=== PATIENT | female | born 1935 | race Caucasian/White ===

== ENCOUNTER → 2016-06-20 | Outpatient (CLI) | payer MEDICARE, OTHER ==
[~2016-06-20] MED LIST: ALPH300C PO; AMIT25TA PO; ASCO500T8 PO; BUTCHERS BROOM PO; CALC-46 PO; CHRO200T9 PO; DHEA PO; DIPH25CA61 PO; DMAE PO; FOLI0.8T2 PO; GLUCOSAMINE PO; HAWT565C PO; HYAL1CAP PO; HYDR-3138 PO; LEVO137T3 PO; LEVO88TA4 PO; LISI1TAB5 PO; MAGNESIUM COMPLEX PO; METF850T2 PO; MICROLACTIN PO; MONT5TAB9 PO; MULT-464 PO; NIAC500T9 PO; POTA20TA6 PO; SELE100T PO; SIMV10TA3 PO; VITA400C14 PO; [UNRECOGNIZED DRUG - CODE] PO
== END | disposition home or self-care (01) ==
LOC: CFH 09:34
PROVIDERS: ATTEND Nurse Practitioner
DX: Z13.820 Encounter for screening for osteoporosis (principal); Z78.0 Asymptomatic menopausal state
CPT/HCPCS: 77080

== ENCOUNTER 2016-11-22 13:27 | Emergency (ER) | payer MEDICARE, OTHER ==
[~2016-11-22] VITALS: Ht 170.2 cm; Wt 85.5 kg
[~2016-11-22 13:27] MED LIST changes: -HYDR-3138 PO; +HYDR-3237 PO
[2016-11-22] MEDS ORDERED: SODIUM CHLORIDE 0.9% 1,000ML IVBOLUS ONE (14:30)
[2016-11-22] MEDS ORDERED: SODIUM CHLORIDE FLUSH 10ML SYR IVF ONE (14:30)
[2016-11-22 14:41] LABS: HEMATOCRIT 38.8 % (34.6-47.8); WHITE BLOOD COUNT 5.9 x10^3/uL (3.4-10)
[2016-11-22 14:45] LABS: BLOOD UREA NITROGEN 16 mg/dL (7-18)
[2016-11-22 16:10] VITALS: BP 151/41
== END 2016-11-22 16:11 | disposition home or self-care (01) ==
LOC: ED 14:58
DX: S86.111A Strain of other muscle(s) and tendon(s) of posterior muscle group at lower leg level, right leg, initial encounter (principal); I10 Essential (primary) hypertension; E11.9 Type 2 diabetes mellitus without complications; E78.5 Hyperlipidemia, unspecified; I73.9 Peripheral vascular disease, unspecified; X50.1XXA Overexertion from prolonged static or awkward postures, initial encounter; Y93.89 Activity, other specified; Y99.8 Other external cause status; Y92.89 Other specified places as the place of occurrence of the external cause
CPT/HCPCS: 36415; 80048; 82040; 85025; 85610; 85730; 93971; 96360; 99285; J7030

== ENCOUNTER 2018-05-23 01:55 | Inpatient (IN) | payer MEDICARE, OTHER ==
[~2018-05-23] VITALS: Ht 170.2 cm; Wt 91.7 kg
[~2018-05-23 01:55] MED LIST changes: +METF850T10 PO; -METF850T2 PO
[2018-05-23] MEDS ORDERED: SODIUM CHLORIDE FLUSH 10ML SYR IVF ONE (02:30)
[2018-05-23] MEDS ORDERED: SODIUM CHLORIDE 0.9% 1,000ML IVBOLUS ONE ×3 (02:30)
[2018-05-23 02:37] LABS: MEAN CORPUSCULAR HEMOGLOBIN 29.5 pg (27.0-34.8); MEAN CORPUSCULAR HGB CONC 33.7 g/dL (32.4-35.8); MEAN CORPUSCULAR VOLUME 87.4 fL (80-100); MEAN PLATELET VOLUME 6.8 fL (7.4-10.4); PLATELET COUNT 256 x10^3/uL (130-400); RED BLOOD COUNT 2.57 x10^6/uL (3.82-5.3); RED CELL DISTRIBUTION WIDTH 16.3 % (9.6-15.2)
[2018-05-23 02:42] LABS: INTERNATIONAL NORMALIZED RATIO 1.31 (0.93-1.1); PROTHROMBIN TIME 13.6 Seconds (9.6-11.5)
[2018-05-23 02:44] LABS: ALANINE AMINOTRANSFERASE 20 U/L (12-78); ANION GAP 6 mmol/L (5-15); CALCIUM 7.8 mg/dL (8.5-10.1); CHLORIDE 110 mmol/L (98-107); CREATININE 1.12 mg/dL (0.55-1.02)
[2018-05-23 02:46] LABS: ANISOCYTOSIS 1+; BASOPHILS # (AUTO) 0.03 x10^3/uL (0-0.1); BASOPHILS % (AUTO) 0 % (0-1); EOSINOPHILS # (AUTO) 0.27 x10^3/uL (0-0.4); EOSINOPHILS % (AUTO) 3 % (1-7); LYMPHOCYTES # (AUTO) 1.15 x10^3/uL (1-3.4); LYMPHOCYTES % (AUTO) 14 % (22-44); MD MORPH REVIEW ONLY; MONOCYTES # (AUTO) 0.97 x10^3/uL (0.2-0.8); MONOCYTES % (AUTO) 12 % (2-9); NEUTROPHILS # (AUTO) 5.93 x10^3/uL (1.8-6.8); NEUTROPHILS % (AUTO) 71 % (42-75)
[2018-05-23 02:47] LABS: OVALOCYTES 1+; POLYCHROMASIA 1+
[2018-05-23 02:48] LABS: ALKALINE PHOSPHATASE 59 U/L (45-117); BILIRUBIN,TOTAL 0.4 mg/dL (0.2-1.0); ECHINOCYTES 1+; TOTAL PROTEIN 5.1 g/dL (6.4-8.2); TROPONIN I < 0.015 ng/mL (0.000-0.045)
[2018-05-23 02:49] LABS: MICROCYTOSIS 1+
[2018-05-23 02:50] LABS: <PLATELET ESTIMATE> ADEQUATE; <PLT MORPHOLOGY> NORMAL PLT MORPH
--- NOTE | 2018-05-23 02:56 | NUR ---
PT BACK FROM CT SCAN AND H&H FOUND TO BE LOW. TRANSFUSE 2 UNITS WAS ORDERED. PT VERY UNCOMFORTABLE AND HAVING INCREASING PAIN IN UPPER RIGHT ABD.
[2018-05-23] MEDS ORDERED: VANCOMYCIN PER PHARMACY MC PRN (03:00)
[2018-05-23] MEDS ORDERED: CEFEPIME 1 GM in DEXTROSE 5% 50 ML IV ONE (03:00)
--- NOTE | 2018-05-23 03:05 | NUR ---
BLOOD STARTED ORDERED AND AWAITING TEST RESULTS.BC X 2 ALSO TO LAB.
[2018-05-23] MEDS ORDERED: PHARMACOKINETIC CONSULTATION MC ONE (03:30)
[2018-05-23] MEDS ORDERED: VANCOMYCIN 1,500 MG in SODIUM CHLORIDE 0.9% 250 ML IV ONE (03:30)
[2018-05-23] MEDS ORDERED: NOREPINEPHRINE 4 MG in SODIUM CHLORIDE 0.9% 246 ML IV PRN (03:30)
--- NOTE | 2018-05-23 03:44 | NUR ---
SECOND UNIT OF BLOOD STARTED.
--- NOTE | 2018-05-23 03:50 | NUR ---
second unit of uncrossed blood running. levo drip started and pt improved.
[2018-05-23] MEDS ORDERED: FENTANYL PF 100 MCG/2ML ONE ×3 (04:10→07:03)
[2018-05-23] MEDS ORDERED: FENTANYL PF 100 MCG/2ML IV ONE (04:30)
[2018-05-23] MEDS ORDERED: LIDOCAINE-MPF 1%, 5ML ONE ×2 (04:35)
--- NOTE | 2018-05-23 04:38 | NUR ---
CALLED HER TWO SONS SUSANA AND LEFT A VOICE MAIL CALLED [facility] TO COME SEE THE PT
[2018-05-23 04:40] VITALS: BP 85/43
[2018-05-23] MEDS ORDERED: MIDAZOLAM 1 MG/ML, 5ML ONE (04:52)
--- NOTE | 2018-05-23 04:52 | NUR ---
PT TO IR AND AWAITING CCU BED. PT VSS AT 5MEQ OF LEVO AND BP AT 115/62. PT A/O X 4. SAB[facility]ON CATH PLACED AND URINE SENT TO LAB.
[2018-05-23 05:00] LABS: MICROSCOPIC NOT IND
[2018-05-23] MEDS ORDERED: ONDANSETRON 2MG/ML, 2ML IVPush PRN (05:00)
[2018-05-23] MEDS ORDERED: OMNIPAQUE 350 MG/ML, 100ML BOTTLE ONE (05:00)
[2018-05-23] MEDS ORDERED: ACETAMINOPHEN 325 MG TABLET PO PRN (05:00)
[2018-05-23 05:03] LABS: CULTURE INDICATED? NO
--- NOTE | 2018-05-23 05:08 | NUR ---
REPORT CALLED TO FLOOR PT WILL GO TO 558 WHEN READY.
[2018-05-23] MEDS ORDERED: VISIPAQUE 320 MG/ML, 150ML BOTTLE ONE (07:10)
[2018-05-23] MEDS ORDERED: DIPHENHYDRAMINE 50 MG/ML, 1ML ONE (07:13)
[2018-05-23] MEDS: morphine SULFATE 10 MG/ML, 1ML IVPush PRN ×2 (08:24→13:39)
[2018-05-23] MEDS: SODIUM CHLORIDE 0.9% 1,000 ML IV SCH ×3 (08:25→21:36)
[2018-05-23] MEDS ORDERED: CEFEPIME 1 GM in DEXTROSE 5% 50 ML IV SCH (11:00)
[2018-05-23] MEDS: MONTELUKAST 5 MG TAB.CHEW PO SCH (12:27)
[2018-05-23] MEDS: MULTIVITAMIN 1 TABLET PO SCH (12:27)
[2018-05-23] MEDS: FOLIC ACID 1 MG TABLET PO SCH (12:27)
[2018-05-23] MEDS: SIMVASTATIN 10 MG TABLET PO SCH (12:27)
[2018-05-23] MEDS: AMITRIPTYLINE 25 MG TABLET PO SCH (21:36)
[2018-05-24 04:36] LABS: BASOPHILS # (AUTO) 0.03 x10^3/uL (0-0.1); BASOPHILS % (AUTO) 0 % (0-1); EOSINOPHILS % (AUTO) 0 % (1-7); LYMPHOCYTES # (AUTO) 0.64 x10^3/uL (1-3.4); LYMPHOCYTES % (AUTO) 5 % (22-44); MD NO; MEAN CORPUSCULAR HEMOGLOBIN 31.1 pg (27.0-34.8); MEAN CORPUSCULAR HGB CONC 34.5 g/dL (32.4-35.8); MEAN CORPUSCULAR VOLUME 90.2 fL (80-100); MEAN PLATELET VOLUME 6.5 fL (7.4-10.4); MONOCYTES # (AUTO) 1.38 x10^3/uL (0.2-0.8); MONOCYTES % (AUTO) 11 % (2-9); NEUTROPHILS # (AUTO) 10.44 x10^3/uL (1.8-6.8); NEUTROPHILS % (AUTO) 84 % (42-75); PLATELET COUNT 242 x10^3/uL (130-400); RED BLOOD COUNT 2.88 x10^6/uL (3.82-5.3); RED CELL DISTRIBUTION WIDTH 16.3 % (9.6-15.2)
[2018-05-24 04:43] LABS: ALBUMIN 2.4 g/dL (3.4-5.0); ANION GAP 4 mmol/L (5-15); CALCIUM 7.9 mg/dL (8.5-10.1); CHLORIDE 113 mmol/L (98-107)
[2018-05-24 04:48] LABS: ALANINE AMINOTRANSFERASE 149 U/L (12-78); ALKALINE PHOSPHATASE 64 U/L (45-117); BILIRUBIN,TOTAL 0.5 mg/dL (0.2-1.0); CREATININE 0.92 mg/dL (0.55-1.02); TOTAL PROTEIN 6.2 g/dL (6.4-8.2)
[2018-05-24] MEDS: SODIUM CHLORIDE 0.9% 1,000 ML IV SCH (05:21)
[2018-05-24] MEDS: MONTELUKAST 5 MG TAB.CHEW PO SCH (08:05)
[2018-05-24] MEDS: SIMVASTATIN 10 MG TABLET PO SCH (08:06)
[2018-05-24] MEDS: MULTIVITAMIN 1 TABLET PO SCH (08:06)
[2018-05-24] MEDS: FOLIC ACID 1 MG TABLET PO SCH (08:06)
[2018-05-24] MEDS ORDERED: OXYcodone IR 5MG TABLET PO PRN (09:00)
[2018-05-24] MEDS: LEVOTHYROXINE 75 MCG TABLET PO SCH (10:20)
[2018-05-24] MEDS ORDERED: MAGNESIUM CITRATE 300ML ORAL SOL PO ONE (14:30)
[2018-05-24 16:47] VITALS: BP 112/64
[2018-05-24 19:25] VITALS: BP 135/71
[2018-05-24] MEDS ORDERED: DIPHENHYDRAMINE 25 MG CAPSULE PO SCH (21:00)
[2018-05-24] MEDS: AMITRIPTYLINE 25 MG TABLET PO SCH (21:16)
[2018-05-25 03:09] VITALS: BP 107/65
[2018-05-25 04:33] LABS: BASOPHILS # (AUTO) 0.13 x10^3/uL (0-0.1); BASOPHILS % (AUTO) 1 % (0-1); EOSINOPHILS % (AUTO) 0 % (1-7); LYMPHOCYTES # (AUTO) 0.48 x10^3/uL (1-3.4); LYMPHOCYTES % (AUTO) 4 % (22-44); MD NO; MEAN CORPUSCULAR HGB CONC 35.1 g/dL (32.4-35.8); MEAN CORPUSCULAR VOLUME 88.4 fL (80-100); MEAN PLATELET VOLUME 6.7 fL (7.4-10.4); MONOCYTES # (AUTO) 1.12 x10^3/uL (0.2-0.8); MONOCYTES % (AUTO) 8 % (2-9); NEUTROPHILS # (AUTO) 11.68 x10^3/uL (1.8-6.8); NEUTROPHILS % (AUTO) 87 % (42-75); PLATELET COUNT 226 x10^3/uL (130-400); RED BLOOD COUNT 2.76 x10^6/uL (3.82-5.3); RED CELL DISTRIBUTION WIDTH 15.9 % (9.6-15.2)
[2018-05-25 04:49] LABS: ALBUMIN 2.6 g/dL (3.4-5.0); ANION GAP 5 mmol/L (5-15); CALCIUM 8.5 mg/dL (8.5-10.1); CHLORIDE 113 mmol/L (98-107)
[2018-05-25 04:54] LABS: ALANINE AMINOTRANSFERASE 201 U/L (12-78); ALKALINE PHOSPHATASE 70 U/L (45-117); BILIRUBIN,TOTAL 0.9 mg/dL (0.2-1.0); CREATININE 0.96 mg/dL (0.55-1.02); TOTAL PROTEIN 6.7 g/dL (6.4-8.2)
[2018-05-25 06:45] VITALS: BP 106/64
[2018-05-25] MEDS: LEVOTHYROXINE 75 MCG TABLET PO SCH (09:25)
[2018-05-25] MEDS: FOLIC ACID 1 MG TABLET PO SCH (09:25)
[2018-05-25] MEDS: MULTIVITAMIN 1 TABLET PO SCH (09:25)
[2018-05-25] MEDS: MONTELUKAST 5 MG TAB.CHEW PO SCH (10:13)
== END 2018-05-25 16:26 | disposition hospice, home (50) | DRG 356 ==
LOC: ED 02:38 → SUATTDRO 03:43 → UNDOADMIN 04:31 → EDIP 04:31 → CCU 08:04 → 3NW 05-24 16:21
PROVIDERS: ADMIT Hospitalist; ATTEND Hospitalist
PROC: 04L33ZZ Occlusion of Hepatic Artery, Percutaneous Approach (ICD-10-PCS; principal; 2018-05-23)
PROC: B4121ZZ Fluoroscopy of Hepatic Artery using Low Osmolar Contrast (ICD-10-PCS; 2018-05-23)
PROC: 30233N1 Transfusion of Nonautologous Red Blood Cells into Peripheral Vein, Percutaneous Approach (ICD-10-PCS; 2018-05-23)
PROC: B41B1ZZ Fluoroscopy of Other Intra-Abdominal Arteries using Low Osmolar Contrast (ICD-10-PCS; 2018-05-23)
DX: K66.1 Hemoperitoneum (principal); R57.1 Hypovolemic shock; K65.9 Peritonitis, unspecified; C18.9 Malignant neoplasm of colon, unspecified; C78.7 Secondary malignant neoplasm of liver and intrahepatic bile duct; D62 Acute posthemorrhagic anemia; E03.9 Hypothyroidism, unspecified; E11.51 Type 2 diabetes mellitus with diabetic peripheral angiopathy without gangrene; E78.5 Hyperlipidemia, unspecified; I10 Essential (primary) hypertension; K43.9 Ventral hernia without obstruction or gangrene; R09.02 Hypoxemia; Z51.5 Encounter for palliative care; Z66 Do not resuscitate; Z85.048 Personal history of other malignant neoplasm of rectum, rectosigmoid junction, and anus; Z87.891 Personal history of nicotine dependence; Z90.49 Acquired absence of other specified parts of digestive tract; Z88.0 Allergy status to penicillin; Z88.2 Allergy status to sulfonamides
CPT/HCPCS: 36415; 36430; 37242; 71275; 74175; 75726; 76937; 80053; 81003; 83605; 83735; 84100; 84145; 84484; 85014; 85018; 85025; 85610; 85730; 86850; 86900; 86923; 87040; 87081; 93005; 99156; 99157; C1889; C1894; G0378; J0692; J2250; J3010; J3370; Q9967; C1751; C1760; C1769; C1887; J1200; J2270; J7030; J7050; P9016; Q0163

== ENCOUNTER 2018-07-12 22:22 | Inpatient (IN) | payer MEDICARE, OTHER ==
[~2018-07-12] VITALS: Ht 162.6 cm; Wt 80.0 kg
--- NOTE | 2018-07-12 22:35 | NUR ---
Pt BIB EMS from home for sharp lower abd pain, intermittent, since about 1300 today. Pt states BMs have "not been normal", denies blood in stool, NVD. Pt has hx of diverticulitis, colon and liver CA.
[2018-07-12] MEDS ORDERED: ONDANSETRON 2MG/ML, 2ML ONE (22:51)
[2018-07-12] MEDS ORDERED: MORPHINE SULFATE 4 MG/ML, 1ML ONE (22:51)
[2018-07-12] MEDS: MORPHINE SULFATE 4 MG/ML, 1ML IVPush PRN (22:55)
[2018-07-12 22:56] LABS: BASOPHILS # (AUTO) 0.01 x10^3/uL (0-0.1); BASOPHILS % (AUTO) 0 % (0-1); EOSINOPHILS # (AUTO) 0.09 x10^3/uL (0-0.4); EOSINOPHILS % (AUTO) 1 % (1-7); LYMPHOCYTES # (AUTO) 0.51 x10^3/uL (1-3.4); LYMPHOCYTES % (AUTO) 7 % (22-44); MD NO; MEAN CORPUSCULAR HEMOGLOBIN 28.9 pg (27.0-34.8); MEAN CORPUSCULAR HGB CONC 33.5 g/dL (32.4-35.8); MEAN CORPUSCULAR VOLUME 86.2 fL (80-100); MEAN PLATELET VOLUME 6.7 fL (7.4-10.4); MONOCYTES # (AUTO) 0.37 x10^3/uL (0.2-0.8); MONOCYTES % (AUTO) 5 % (2-9); NEUTROPHILS # (AUTO) 6.13 x10^3/uL (1.8-6.8); NEUTROPHILS % (AUTO) 86 % (42-75); PLATELET COUNT 262 x10^3/uL (130-400); RED CELL DISTRIBUTION WIDTH 18.6 % (9.6-15.2)
[2018-07-12] MEDS ORDERED: SODIUM CHLORIDE FLUSH 10ML SYR IVF ONE (23:00)
[2018-07-12] MEDS ORDERED: ONDANSETRON 2MG/ML, 2ML IVPush ONE (23:00)
[2018-07-12] MEDS ORDERED: MONT10TA6 PO (23:02)
[2018-07-12] MEDS ORDERED: OXYC1TAB7 PO (23:02)
[2018-07-12 23:09] LABS: ALANINE AMINOTRANSFERASE 42 U/L (12-78); ALBUMIN 3.1 g/dL (3.4-5.0); ANION GAP 5 mmol/L (5-15); CALCIUM 9.7 mg/dL (8.5-10.1); CHLORIDE 104 mmol/L (98-107); CREATININE 1.09 mg/dL (0.55-1.02)
[2018-07-12 23:11] LABS: ALKALINE PHOSPHATASE 107 U/L (45-117); BILIRUBIN,TOTAL 0.5 mg/dL (0.2-1.0); TOTAL PROTEIN 8.4 g/dL (6.4-8.2)
[2018-07-12] MEDS ORDERED: OMNIPAQUE 350 MG/ML, 100ML BOTTLE ONE (23:54)
[2018-07-13] MEDS ORDERED: MORPHINE SULFATE 4 MG/ML, 1ML ONE ×2 (00:07→04:34)
[2018-07-13] MEDS: MORPHINE SULFATE 4 MG/ML, 1ML IVPush PRN (00:10)
--- NOTE | 2018-07-13 00:11 | NUR ---
nando rn: pt medicated for pain 05/[address], side rails up, call light in place. informed pt of need of urine, told to call when she is ready to give sample
[2018-07-13 02:18] LABS: MICROSCOPIC NOT IND
[2018-07-13 02:25] LABS: CULTURE INDICATED? NO
[2018-07-13 03:01] LABS: INTERNATIONAL NORMALIZED RATIO 1.16 (0.93-1.1); PROTHROMBIN TIME 12.1 Seconds (9.6-11.5)
[2018-07-13] MEDS ORDERED: SODIUM CHLORIDE 0.9% 1,000 ML IV SCH (03:36)
[2018-07-13] MEDS ORDERED: ONDANSETRON ODT 4 MG PO PRN (04:00)
[2018-07-13] MEDS ORDERED: OXYcodone/APAP 5/325MG TABLET PO PRN (04:00)
[2018-07-13] MEDS ORDERED: OXYcodone IR 5MG TABLET PO PRN (04:00)
[2018-07-13] MEDS ORDERED: ACETAMINOPHEN 325 MG TABLET PO PRN ×2 (04:00→11:00)
[2018-07-13] MEDS ORDERED: morphine SULFATE 10 MG/ML, 1ML IVPush PRN (04:00)
[2018-07-13] MEDS ORDERED: ONDANSETRON 2MG/ML, 2ML IVPush PRN (04:00)
[2018-07-13] MEDS ORDERED: DOCUSATE 100 MG CAPSULE PO PRN (04:00)
[2018-07-13] MEDS ORDERED: hydrALAzine 20 MG/ML, 1ML IVPush PRN (04:00)
[2018-07-13] MEDS ORDERED: PROMETHAZINE 25 MG/ML, 1ML IM PRN (04:00)
[2018-07-13 04:20] LABS: FREE T4 (FREE THYROXINE) 1.11 ng/dL (0.76-1.46); HEMOGLOBIN A1C 5.3 % (4.2-6.3); THYROID STIMULATING HORMONE 3.26 mIU/L (0.358-3.740)
[2018-07-13] MEDS ORDERED: PLEASE ENTER HEIGHT MC SCH (05:30)
[2018-07-13] MEDS ORDERED: FENTANYL PF 250 MCG/5ML ONE (05:36)
[2018-07-13] MEDS ORDERED: EPINEPHRINE 1 MG/ML, 1ML ONE (05:39)
[2018-07-13] MEDS: LEVOTHYROXINE 137 MCG TABLET PO SCH (06:00)
[2018-07-13] MEDS ORDERED: SUCCINYLCHOLINE 20 MG/ML, 10ML ONE (06:58)
[2018-07-13] MEDS ORDERED: CEFAZOLIN 1,000 MG ONE (06:58)
[2018-07-13] MEDS ORDERED: DEXAMETHASONE 4 MG/ML, 1ML ONE (06:58)
[2018-07-13] MEDS ORDERED: NEOSTIGMINE 1 MG/ML, 10ML ONE (06:58)
[2018-07-13] MEDS ORDERED: ONDANSETRON 2MG/ML, 2ML ONE (06:58)
[2018-07-13] MEDS ORDERED: GLYCOPYRROLATE 0.2MG/1ML, 5ML ONE (06:58)
[2018-07-13] MEDS ORDERED: ROCURONIUM 10MG/ML,5ML ONE (06:58)
[2018-07-13] MEDS ORDERED: PROPOFOL 10 MG/ML, 20ML ONE (06:58)
[2018-07-13] MEDS: INSULIN LISPRO 100 UNITS/ML, PEN SQ-INSULIN SCH ×4 (07:00→20:33)
[2018-07-13] MEDS: FENTANYL PF 100 MCG/2ML IV PRN ×3 (07:18→07:28)
[2018-07-13] MEDS ORDERED: FENTANYL PF 100 MCG/2ML ONE (07:19)
[2018-07-13] MEDS ORDERED: HYDROmorphone 2 MG/ML, 1ML IVPush PRN (07:30)
[2018-07-13] MEDS ORDERED: ALBUTEROL/IPRATROPIUM 2.5MG/0.5MG, 3 ML NPPB PRN (07:30)
[2018-07-13] MEDS ORDERED: PROMETHAZINE 25 MG/ML, 1ML IV PRN (07:30)
[2018-07-13] MEDS ORDERED: hydrALAzine 20 MG/ML, 1ML IV PRN (07:30)
[2018-07-13] MEDS ORDERED: SCOPOLAMINE PATCH, 1.5MG PATCH.TD72 TD PRN (07:30)
[2018-07-13] MEDS ORDERED: MEPERIDINE/PF 25MG/0.5ML IVPush PRN (07:30)
[2018-07-13] MEDS ORDERED: ONDANSETRON 2MG/ML, 2ML IV PRN ×2 (07:30→11:00)
[2018-07-13] MEDS ORDERED: METOPROLOL 1 MG/ML, 5ML IV PRN (07:30)
[2018-07-13] MEDS ORDERED: MIDAZOLAM 1 MG/ML, 2ML IV PRN (07:30)
[2018-07-13] MEDS ORDERED: DIAZEPAM 5 MG/ML, 2ML IVPush PRN (07:30)
[2018-07-13] MEDS ORDERED: HYDROmorphone 2 MG/ML, 1ML ONE (07:32)
[2018-07-13] MEDS ORDERED: MIDAZOLAM 1 MG/ML, 2ML ONE (07:32)
[2018-07-13] MEDS ORDERED: KETOROLAC 30 MG/1 ML ONE (08:05)
[2018-07-13] MEDS ORDERED: KETOROLAC 30 MG/1 ML IVPush PRN (08:30)
[2018-07-13] MEDS: HYDROCHLOROTHIAZIDE 12.5 MG CAPSULE PO SCH (11:00)
[2018-07-13] MEDS: LISINOPRIL 20 MG TABLET PO SCH (11:00)
[2018-07-13] MEDS: MONTELUKAST 10 MG TABLET PO SCH (11:00)
[2018-07-13] MEDS ORDERED: ACETAMINOPHEN 650 MG SUPP PR PRN (11:00)
[2018-07-13] MEDS ORDERED: HEPARIN 5,000 UNITS/ML, 1ML SQ SCH (11:30)
[2018-07-13 11:37] VITALS: BP 110/53
[2018-07-13 11:55] VITALS: BP 110/53
[2018-07-13] MEDS: POTASSIUM CHLORIDE 20 MEQ in D5%-0.45% NACL 1,000 ML IV SCH (14:40)
[2018-07-13 14:43] VITALS: BP 107/65
[2018-07-13] MEDS ORDERED: LACTATED RINGERS 1,000 ML IVBOLUS ONE (17:30)
[2018-07-13 20:25] VITALS: BP 110/65
[2018-07-13] MEDS: AMITRIPTYLINE 25 MG TABLET PO SCH ×2 (20:33→22:01)
[2018-07-14 00:08] VITALS: BP 93/57
[2018-07-14 04:08] VITALS: BP 99/46
[2018-07-14 04:19] LABS: BASOPHILS % (AUTO) 0 % (0-1); EOSINOPHILS % (AUTO) 0 % (1-7); LYMPHOCYTES # (AUTO) 0.48 x10^3/uL (1-3.4); LYMPHOCYTES % (AUTO) 5 % (22-44); MD NO; MEAN CORPUSCULAR HEMOGLOBIN 29.2 pg (27.0-34.8); MEAN CORPUSCULAR HGB CONC 33.5 g/dL (32.4-35.8); MEAN CORPUSCULAR VOLUME 87.1 fL (80-100); MONOCYTES # (AUTO) 0.93 x10^3/uL (0.2-0.8); MONOCYTES % (AUTO) 10 % (2-9); NEUTROPHILS # (AUTO) 8.37 x10^3/uL (1.8-6.8); NEUTROPHILS % (AUTO) 86 % (42-75); PLATELET COUNT 223 x10^3/uL (130-400); RED BLOOD COUNT 3.53 x10^6/uL (3.82-5.3); RED CELL DISTRIBUTION WIDTH 18.8 % (9.6-15.2)
[2018-07-14 04:23] LABS: ALBUMIN 2.2 g/dL (3.4-5.0); ANION GAP 4 mmol/L (5-15); CALCIUM 8.7 mg/dL (8.5-10.1); CHLORIDE 103 mmol/L (98-107)
[2018-07-14 04:28] LABS: ALANINE AMINOTRANSFERASE 30 U/L (12-78); ALKALINE PHOSPHATASE 59 U/L (45-117); BILIRUBIN,TOTAL 0.6 mg/dL (0.2-1.0); CHOL/HDL RATIO 2.5; CHOLESTEROL, TOTAL 92 mg/dL (140-239); CREATININE 1.14 mg/dL (0.55-1.02); HDL CHOL % 40 % (28-40); HDL CHOLESTEROL (DIRECT) 37 mg/dL (40-60); LDL CHOLESTEROL,CALCULATED 46 mg/dL (54-169); LDL/HDL RATIO 1.2 (0.5-3.0); TOTAL PROTEIN 6.4 g/dL (6.4-8.2); TRIGLYCERIDES 43 mg/dL (50-200); VLDL CHOLESTEROL 9 mg/dL (0-25)
[2018-07-14] MEDS: POTASSIUM CHLORIDE 20 MEQ in D5%-0.45% NACL 1,000 ML IV SCH ×2 (05:38→19:12)
[2018-07-14] MEDS: LEVOTHYROXINE 137 MCG TABLET PO SCH (05:38)
[2018-07-14] MEDS: INSULIN LISPRO 100 UNITS/ML, PEN SQ-INSULIN SCH ×4 (06:45→20:39)
[2018-07-14 06:56] VITALS: BP 98/45
[2018-07-14] MEDS: MONTELUKAST 10 MG TABLET PO SCH (09:33)
[2018-07-14] MEDS: LISINOPRIL 20 MG TABLET PO SCH (09:45)
[2018-07-14] MEDS: HYDROCHLOROTHIAZIDE 12.5 MG CAPSULE PO SCH (09:45)
[2018-07-14] MEDS: HEPARIN 5,000 UNITS/ML, 1ML SQ SCH ×2 (11:39→19:27)
[2018-07-14 14:14] VITALS: BP 97/57
[2018-07-14] MEDS ORDERED: PHENOL THROAT SPRAY BOTTLE MM PRN (15:30)
[2018-07-14 19:08] VITALS: BP 113/65
[2018-07-14] MEDS: AMITRIPTYLINE 25 MG TABLET PO SCH (20:38)
[2018-07-14] MEDS: KETOROLAC 30 MG/1 ML IV PRN (23:40)
[2018-07-15] MEDS: morphine SULFATE 10 MG/ML, 1ML IV PRN ×2 (01:44→03:50)
[2018-07-15 02:03] VITALS: BP 94/55
[2018-07-15] MEDS: HEPARIN 5,000 UNITS/ML, 1ML SQ SCH ×3 (03:50→23:20)
[2018-07-15 05:08] LABS: ANION GAP 2 mmol/L (5-15); CALCIUM 8.4 mg/dL (8.5-10.1); CHLORIDE 104 mmol/L (98-107)
[2018-07-15 05:10] LABS: CREATININE 0.93 mg/dL (0.55-1.02)
[2018-07-15] MEDS: LEVOTHYROXINE 137 MCG TABLET PO SCH (06:02)
[2018-07-15] MEDS: INSULIN LISPRO 100 UNITS/ML, PEN SQ-INSULIN SCH ×4 (06:03→21:00)
[2018-07-15 06:42] VITALS: BP 97/53
[2018-07-15] MEDS: MONTELUKAST 10 MG TABLET PO SCH (09:46)
[2018-07-15] MEDS: LISINOPRIL 20 MG TABLET PO SCH (09:46)
[2018-07-15] MEDS: HYDROCHLOROTHIAZIDE 12.5 MG CAPSULE PO SCH (09:46)
[2018-07-15] MEDS: POTASSIUM CHLORIDE 20 MEQ in D5%-0.45% NACL 1,000 ML IV SCH (09:51)
[2018-07-15] MEDS ORDERED: POTASSIUM PHOSPHATE 22 MEQ in SODIUM CHLORIDE 0.9% 500 ML IV ONE (10:00)
[2018-07-15 13:20] VITALS: BP 114/64
[2018-07-15 18:51] VITALS: BP 141/57
[2018-07-15] MEDS: AMITRIPTYLINE 25 MG TABLET PO SCH (23:20)
[2018-07-15] MEDS: KETOROLAC 30 MG/1 ML IV PRN (23:20)
[2018-07-16] MEDS: morphine SULFATE 10 MG/ML, 1ML IV PRN
[2018-07-16 02:11] VITALS: BP 109/58
[2018-07-16 05:15] LABS: ANION GAP 5 mmol/L (5-15); CALCIUM 8.1 mg/dL (8.5-10.1); CHLORIDE 105 mmol/L (98-107)
[2018-07-16 05:18] LABS: BASOPHILS # (AUTO) 0.02 x10^3/uL (0-0.1); BASOPHILS % (AUTO) 0 % (0-1); EOSINOPHILS # (AUTO) 0.29 x10^3/uL (0-0.4); EOSINOPHILS % (AUTO) 6 % (1-7); LYMPHOCYTES # (AUTO) 0.73 x10^3/uL (1-3.4); LYMPHOCYTES % (AUTO) 16 % (22-44); MD NO; MEAN CORPUSCULAR HEMOGLOBIN 28.8 pg (27.0-34.8); MEAN CORPUSCULAR HGB CONC 33.4 g/dL (32.4-35.8); MEAN CORPUSCULAR VOLUME 86.2 fL (80-100); MEAN PLATELET VOLUME 6.7 fL (7.4-10.4); MONOCYTES # (AUTO) 0.48 x10^3/uL (0.2-0.8); MONOCYTES % (AUTO) 10 % (2-9); NEUTROPHILS # (AUTO) 3.17 x10^3/uL (1.8-6.8); NEUTROPHILS % (AUTO) 68 % (42-75); PLATELET COUNT 201 x10^3/uL (130-400); RED BLOOD COUNT 3.32 x10^6/uL (3.82-5.3); RED CELL DISTRIBUTION WIDTH 18.7 % (9.6-15.2)
[2018-07-16 05:19] LABS: CREATININE 0.69 mg/dL (0.55-1.02)
[2018-07-16 06:47] VITALS: BP 113/62
[2018-07-16] MEDS: INSULIN LISPRO 100 UNITS/ML, PEN SQ-INSULIN SCH ×4 (07:00→23:22)
[2018-07-16] MEDS: LEVOTHYROXINE 137 MCG TABLET PO SCH (07:39)
[2018-07-16] MEDS: MONTELUKAST 10 MG TABLET PO SCH (08:25)
[2018-07-16] MEDS: HYDROCHLOROTHIAZIDE 12.5 MG CAPSULE PO SCH (08:25)
[2018-07-16] MEDS: HEPARIN 5,000 UNITS/ML, 1ML SQ SCH ×3 (08:26→23:26)
[2018-07-16] MEDS: LISINOPRIL 20 MG TABLET PO SCH (08:26)
[2018-07-16] MEDS: POTASSIUM CHLORIDE 20 MEQ in D5%-0.45% NACL 1,000 ML IV SCH ×2 (10:21→23:21)
[2018-07-16 13:16] VITALS: BP_SYST 106; BP_SYST 127; BP_DIAS 71; BP_DIAS 73
[2018-07-16 20:33] VITALS: BP 132/60
[2018-07-16] MEDS: KETOROLAC 30 MG/1 ML IVPush PRN (22:27)
[2018-07-16] MEDS: AMITRIPTYLINE 25 MG TABLET PO SCH (22:27)
[2018-07-17] MEDS: morphine SULFATE 10 MG/ML, 1ML IV PRN (01:33)
[2018-07-17 02:30] VITALS: BP 115/55
[2018-07-17] MEDS: LEVOTHYROXINE 137 MCG TABLET PO SCH (06:51)
[2018-07-17] MEDS: INSULIN LISPRO 100 UNITS/ML, PEN SQ-INSULIN SCH ×4 (07:40→21:00)
[2018-07-17 08:00] VITALS: BP 114/65
[2018-07-17] MEDS: LISINOPRIL 20 MG TABLET PO SCH (08:36)
[2018-07-17] MEDS: HEPARIN 5,000 UNITS/ML, 1ML SQ SCH ×2 (08:36→16:46)
[2018-07-17] MEDS: SENNA/DOCUSATE TABLET PO SCH (08:36)
[2018-07-17] MEDS: HYDROCHLOROTHIAZIDE 12.5 MG CAPSULE PO SCH (08:36)
[2018-07-17] MEDS: MONTELUKAST 10 MG TABLET PO SCH (08:36)
[2018-07-17] MEDS: POTASSIUM CHLORIDE 20 MEQ in D5%-0.45% NACL 1,000 ML IV SCH (13:08)
[2018-07-17 14:00] VITALS: BP 134/73
[2018-07-17] MEDS ORDERED: POLYETHYLENE GLYCOL 17 GM PACKET PO PRN (15:30)
[2018-07-17 20:46] VITALS: BP_SYST 147; BP_DIAS 71; BP_DIAS 77
[2018-07-18] MEDS: HEPARIN 5,000 UNITS/ML, 1ML SQ SCH ×3 (00:17→16:47)
[2018-07-18] MEDS: KETOROLAC 30 MG/1 ML IVPush PRN (00:17)
[2018-07-18] MEDS: AMITRIPTYLINE 25 MG TABLET PO SCH (00:17)
[2018-07-18 03:32] VITALS: BP 121/68
[2018-07-18] MEDS: LEVOTHYROXINE 137 MCG TABLET PO SCH (06:42)
[2018-07-18] MEDS: INSULIN LISPRO 100 UNITS/ML, PEN SQ-INSULIN SCH ×3 (06:48→16:47)
[2018-07-18] MEDS: POTASSIUM CHLORIDE 20 MEQ in D5%-0.45% NACL 1,000 ML IV SCH (07:50)
[2018-07-18] MEDS: HYDROCHLOROTHIAZIDE 12.5 MG CAPSULE PO SCH (07:50)
[2018-07-18] MEDS: MONTELUKAST 10 MG TABLET PO SCH (07:52)
[2018-07-18] MEDS: SENNA/DOCUSATE TABLET PO SCH (07:52)
[2018-07-18] MEDS: LISINOPRIL 20 MG TABLET PO SCH (07:52)
[2018-07-18 07:55] VITALS: BP 128/53
[2018-07-18] MEDS ORDERED: SENN-177 PO (14:19)
[2018-07-18 14:59] VITALS: BP 133/60
== END 2018-07-18 16:20 | disposition home health service (06) | DRG 335 ==
LOC: ED 22:38 → EDIP 07-13 02:47 → 4NOR 07-13 08:49
PROVIDERS: ADMIT Internal Medicine; ATTEND Internal Medicine
PROC: 0T9B70Z Drainage of Bladder with Drainage Device, Via Natural or Artificial Opening (ICD-10-PCS; 2018-07-13)
PROC: 0DN80ZZ Release Small Intestine, Open Approach (ICD-10-PCS; principal; 2018-07-13 05:30)
DX: K43.6 Other and unspecified ventral hernia with obstruction, without gangrene (principal); N17.0 Acute kidney failure with tubular necrosis; C78.7 Secondary malignant neoplasm of liver and intrahepatic bile duct; K46.0 Unspecified abdominal hernia with obstruction, without gangrene; E03.9 Hypothyroidism, unspecified; E11.9 Type 2 diabetes mellitus without complications; E78.5 Hyperlipidemia, unspecified; I10 Essential (primary) hypertension; K43.9 Ventral hernia without obstruction or gangrene; Z51.5 Encounter for palliative care; Z85.048 Personal history of other malignant neoplasm of rectum, rectosigmoid junction, and anus; Z87.891 Personal history of nicotine dependence; Z90.49 Acquired absence of other specified parts of digestive tract; Z90.710 Acquired absence of both cervix and uterus
CPT/HCPCS: 36415; 74177; 80048; 80053; 80061; 81003; 82962; 83036; 83605; 83690; 83735; 84100; 84439; 84443; 85025; 85610; 85730; 86850; 86900; 99285; G0378; J0171; J0690; J1100; J1644; J1885; J2250; J2405; J2704; J2710; J3010; J3480; Q9967; J0330; J1815; J2270; J7040; J7120

== ENCOUNTER 2020-01-16 09:35 | Emergency (ER) | payer MEDICARE, OTHER ==
[~2020-01-16] VITALS: Ht 167.6 cm; Wt 56.8 kg
[~2020-01-16 09:35] MED LIST changes: +LISI1TAB39 PO; -LISI1TAB5 PO; +MONT10TA6 PO; +OXYC1TAB7 PO; +SENN-177 PO; +SIMV10TA18 PO; -SIMV10TA3 PO
[2020-01-16 10:23] LABS: ALBUMIN 2.5 g/dL (3.4-5.0); ANION GAP 5 mmol/L (5-15); CALCIUM 9.1 mg/dL (8.5-10.1); CHLORIDE 102 mmol/L (98-107); CREATININE 0.87 mg/dL (0.55-1.02)
[2020-01-16 10:24] LABS: BASOPHILS % (AUTO) 1 % (0-1); EOSINOPHILS % (AUTO) 1 % (1-7); LYMPHOCYTES % (AUTO) 9 % (22-44); MEAN CORPUSCULAR HGB CONC 32.1 g/dL (32.4-35.8); MEAN PLATELET VOLUME 6.4 fL (7.4-10.4); MONOCYTES % (AUTO) 10 % (2-9); NEUTROPHILS % (AUTO) 80 % (42-75); PLATELET COUNT 440 x10^3/uL (130-400); RED BLOOD COUNT 3.41 x10^6/uL (3.82-5.3)
[2020-01-16 10:40] LABS: MD NO
--- NOTE | 2020-01-16 12:12 | NUR ---
MODERATE ASSIST TO WHEELCHAIR. PROVIDER ASSESSED PT MOBILITY AND CLEARED TO DC. PT TAKEN TO DC DESK IN , PROVIDED WITH TAXI VOUCHER.
[2020-01-16 12:17] VITALS: BP 120/55
== END 2020-01-16 12:19 | disposition home or self-care (01) ==
LOC: ED 10:36
DX: I87.2 Venous insufficiency (chronic) (peripheral) (principal); E11.9 Type 2 diabetes mellitus without complications; E78.5 Hyperlipidemia, unspecified; I10 Essential (primary) hypertension; Z85.038 Personal history of other malignant neoplasm of large intestine
CPT/HCPCS: 36415; 80048; 82040; 85025; 93922; 99284; 99285

== ENCOUNTER 2020-02-08 10:51 | Emergency (ER) | payer MEDICARE, OTHER ==
[~2020-02-08] VITALS: Ht 165.1 cm; Wt 58.1 kg
[~2020-02-08 10:51] MED LIST changes: +AMIT50TA PO; +CEPH-368 PO; +FURO20TA3 PO; +MONT10TA96 PO
--- NOTE | 2020-02-08 11:09 | NUR ---
PT HAS GLF TO LEFT KNEE, DENIES HITTING HEAD ,NO LOC. NO TRAUMA OR DEFORMITY NOTICED, RIGHT FOOT CELLULITIS FROM PREVIOUS ADMISSION, SCABBED ON TOES
--- NOTE | 2020-02-08 11:18 | NUR ---
LAND DEVELOPER AT BEDSIDE. PLAN FOR ADMIT,
[2020-02-08] MEDS ORDERED: ACETAMINOPHEN 325 MG TABLET PO ONE (11:30)
--- NOTE | 2020-02-08 13:29 | NUR ---
PT RESTING, WATCHING TV, CALL LIGHT IN REACH. WAITING FOR SNF PLACEMENT
--- NOTE | 2020-02-08 14:58 | NUR ---
ASSISTED TO [facility]. PT ON HOSPITAL BED, VSS
--- NOTE | 2020-02-08 14:58 | NUR ---
GIVEN WATER AND FRUIT. CALL LIGHT IN REACH, BED WARMER FOR COMFORT
--- NOTE | 2020-02-08 17:01 | NUR ---
PT RESTING, SEE CM NOTES. PT WILL BE ADMIT TO ER AND DETERMINE SNF PLACEMENT TOMORROW.
[2020-02-08] MEDS ORDERED: ACETAMINOPHEN 325 MG TABLET PO PRN (17:30)
[2020-02-08] MEDS ORDERED: SENNA/DOCUSATE TABLET PO PRN (17:30)
[2020-02-08] MEDS ORDERED: ENOXAPARIN 40 MG/0.4 ML SQ SCH (17:30)
[2020-02-08] MEDS ORDERED: ONDANSETRON ODT 4 MG PO PRN (17:30)
[2020-02-08] MEDS ORDERED: CEPHALEXIN 500 MG CAPSULE PO SCH (17:30)
[2020-02-08] MEDS ORDERED: ONDANSETRON 2MG/ML, 2ML IVPush PRN (17:30)
[2020-02-08] MEDS ORDERED: ENOXAPARIN 40 MG/0.4 ML ONE (17:41)
[2020-02-08] MEDS ORDERED: CEPHALEXIN 500 MG CAPSULE ONE (17:41)
[2020-02-08 17:43] VITALS: BP 132/55
--- NOTE | 2020-02-08 18:37 | NUR ---
Patient/Caregiver given discharge instructions and they have confirmed that they understand the instructions. Patient ambulatory with steady gait.
[2020-02-08] MEDS ORDERED: MONTELUKAST 10 MG TABLET PO SCH (21:00)
[2020-02-08] MEDS ORDERED: LACTOBACILLUS CHEW TABLET PO SCH (21:00)
[2020-02-09] MEDS ORDERED: LEVOTHYROXINE 137 MCG TABLET PO SCH (09:00)
== END 2020-02-08 18:39 | disposition home or self-care (01) ==
LOC: ED 11:26 → EDIP 17:06 → UNDOADMIN 17:06
DX: G89.29 Other chronic pain (principal); Z20.828 Contact with and (suspected) exposure to other viral communicable diseases; M79.652 Pain in left thigh; M25.562 Pain in left knee; E78.5 Hyperlipidemia, unspecified; Z86.73 Personal history of transient ischemic attack (TIA), and cerebral infarction without residual deficits; Z85.038 Personal history of other malignant neoplasm of large intestine; W19.XXXA Unspecified fall, initial encounter; Y93.89 Activity, other specified; Y92.098 Other place in other non-institutional residence as the place of occurrence of the external cause; Y99.8 Other external cause status
CPT/HCPCS: 73552; 73564; 87635; 96372; 99284; J1650; 99285